=== PATIENT | female | born 1995 | race Caucasian/White ===

== ENCOUNTER 2024-02-01 14:11 | Emergency (ER) | payer SELFPAY ==
[2024-02-01 15:24] LABS: BASOPHILS ABSOLUTE AUTO 0.05 K/uL (0.00-0.20); BASOPHILS PERCENT AUTO 0.5 % (0.0-1.0); EOSINOPHILS ABSOLUTE AUTO 0.34 K/uL (0.00-0.45); EOSINOPHILS PERCENT AUTO 3.2 % (0.0-6.0); HEMATOCRIT 41.7 % (37.0-47.0); HEMOGLOBIN 13.9 g/dL (12.0-16.0); IMMATURE GRAN ABSOLUTE AUTO 0.02 K/uL (0.00-0.05); IMMATURE GRAN PERCENT AUTO 0.2 % (0.0-0.4); LYMPHOCYTES ABSOLUTE AUTO 1.96 K/uL (1.00-4.80); LYMPHOCYTES PERCENT AUTO 18.4 % (24.0-44.0); MEAN CORPUSCULAR HEMOGLOBIN 27.4 pg (28.0-32.0); MEAN CORPUSCULAR HGB CONC 33.3 g/dL (32.0-36.0); MEAN CORPUSCULAR VOLUME 82.1 fL (83.0-99.0); MEAN PLATELET VOLUME 9.9 fL (9.4-12.3); MONOCYTES ABSOLUTE AUTO 0.44 K/uL (0.00-0.80); MONOCYTES PERCENT AUTO 4.1 % (0.0-8.0); NEUTROPHILS ABSOLUTE AUTO 7.82 K/uL (1.80-7.70); NEUTROPHILS PERCENT AUTO 73.6 % (41.0-71.0); PLATELET COUNT,PLT 359 K/uL (150-400); RED BLOOD CELL COUNT 5.08 M/uL (4.10-5.30); WHITE BLOOD CELL COUNT,WBC 10.63 K/uL (3.9-11.3)
[2024-02-01 15:47] LABS: A/G RATIO 1.2 (0.9-1.6); ALANINE AMINOTRANSFERASE,ALT 29 IU/L (14-63); ALBUMIN 3.8 g/dL (3.4-5.0); ALKALINE PHOSPHATASE 81 U/L (46-116); ASPARTATE AMNIOTRANSFERASE,AST 10 IU/L (15-37); BILIRUBIN TOTAL 0.3 mg/dL (0.2-1.0); BLOOD UREA NITROGEN,BUN 8 mg/dL (7.0-18.0); CALCIUM 8.9 mg/dL (8.5-10.1); CHLORIDE,CL 105 mmol/L (98-107); CREATININE 0.9 mg/dL (0.6-1.0); EST CRCL DRUG DOSING (CG) 78.36 mL/min; GLUCOSE RANDOM 90 mg/dL (74-106); POTASSIUM,K 3.9 mmol/L (3.5-5.1); PROTEIN TOTAL,TP 7.1 g/dL (6.4-8.2); SODIUM,NA 140 mmol/L (136-145)
[2024-02-01 16:13] LABS: ESTIMATED GFR 90 mL/min (>60)
[2024-02-01] MEDS: Ketorolac 30 MG/ML SDV IVPUSH ONE (16:40)
[2024-02-01] MEDS: Sodium Chloride 0.9% 1,000 ML IV ONE (16:40)
== END 2024-02-01 17:33 | disposition home or self-care (01) ==
LOC: MW.ED 14:11
DX: R07.9 Chest pain, unspecified (principal); Z79.899 Other long term (current) drug therapy; Z91.048 Other nonmedicinal substance allergy status; Z75.8 Other problems related to medical facilities and other health care
CPT/HCPCS: 36415; 71046; 80053; 84484; 85025; 93005; 96361; 96374; 99285; J1885; J7030; 93010

== ENCOUNTER 2024-04-08 11:25 | Day surgery (SDC) | payer BC ==
[~2024-04-08 11:25] MED LIST: Sodium Chloride 0.9% 10 ML Syringe FLUSH PRN; Sodium Chloride 0.9% 2.5 ML Syringe FLUSH PRN; Sodium Chloride 0.9% 20 ML SDV IV PRN
[2024-04-08] MEDS: Lactated Ringers 1,000 ML IV SCH (12:06)
[2024-04-08] MEDS ORDERED: Lidocaine 2% 5 ML SDV ONE (12:38)
[2024-04-08] MEDS ORDERED: propofoL 50 ML ONE (12:39)
== END 2024-04-08 14:25 | disposition home or self-care (01) ==
LOC: MW.SDS 11:25
PROVIDERS: ATTEND Surgery
DX: K21.01 Gastro-esophageal reflux disease with esophagitis, with bleeding (principal); K31.89 Other diseases of stomach and duodenum; K44.9 Diaphragmatic hernia without obstruction or gangrene; F41.8 Other specified anxiety disorders; G47.30 Sleep apnea, unspecified; K92.1 Melena; K58.9 Irritable bowel syndrome, unspecified; E66.9 Obesity, unspecified; I10 Essential (primary) hypertension; K22.89 Other specified disease of esophagus; Z79.899 Other long term (current) drug therapy; Z68.38 Body mass index [BMI] 38.0-38.9, adult; Z88.8 Allergy status to other drugs, medicaments and biological substances; Z91.09 Other allergy status, other than to drugs and biological substances; Z87.891 Personal history of nicotine dependence
CPT/HCPCS: 43239; 45380; J2704; J7120; 00813; J3490

== ENCOUNTER 2024-05-27 11:01 | Day surgery (SDC) | payer BC ==
[2024-05-27] MEDS: Lactated Ringers 1,000 ML IV SCH (11:35)
[2024-05-27] MEDS ORDERED: Lidocaine 2% 5 ML SDV ONE (13:05)
[2024-05-27] MEDS ORDERED: Propofol 200 MG/20 ML SDV ONE ×2 (13:05→13:06)
== END 2024-05-27 14:20 | disposition home or self-care (01) ==
LOC: MW.SDS 11:01
PROVIDERS: ATTEND Surgery
DX: K20.0 Eosinophilic esophagitis (principal); K21.9 Gastro-esophageal reflux disease without esophagitis; F32.A Depression, unspecified; F41.9 Anxiety disorder, unspecified; Z87.891 Personal history of nicotine dependence; Z79.899 Other long term (current) drug therapy
CPT/HCPCS: 43239; J2704; J7120; 00731; J3490